=== PATIENT | male | born 1960 | race Caucasian/White ===

== ENCOUNTER 2018-10-13 07:38 | Inpatient (IN) | payer MEDICAID ==
[~2018-10-13] VITALS: Ht 177.8 cm; Wt 94.8 kg
[2018-10-13] MEDS ORDERED: ONDANSETRON 4 MG/2 ML VIAL ONE (07:58)
[2018-10-13] MEDS ORDERED: MORPHINE SULFATE 2 MG/1 ML DISP.SYRIN ONE (07:58)
[2018-10-13] MEDS ORDERED: MORPHINE SULFATE 2 MG/1 ML DISP.SYRIN IV ONE (08:00)
[2018-10-13] MEDS ORDERED: LOPERAMIDE HCL 2 MG CAPSULE PO ONE (08:00)
[2018-10-13] MEDS ORDERED: PANTOPRAZOLE SODIUM 40 MG VIAL IV ONE (08:00)
[2018-10-13] MEDS ORDERED: IV NORMAL SALINE 1000 ML BAG IV ONE (08:00)
[2018-10-13] MEDS ORDERED: ONDANSETRON 4 MG/2 ML VIAL IV ONE (08:00)
[2018-10-13] MEDS ORDERED: PANTOPRAZOLE SODIUM 40 MG VIAL ONE (08:25)
[2018-10-13] MEDS ORDERED: LOPERAMIDE HCL 2 MG CAPSULE ONE (08:26)
[2018-10-13 08:30] LABS: BASOPHILS % (AUTO) 0.4 % (0.0-2.0); EOSINOPHILS # (AUTO) 0.1 K/uL (0.0-0.7); EOSINOPHILS % (AUTO) 1.3 % (0.0-7.0); HEMATOCRIT 52.7 % (36.7-47.1); HEMOGLOBIN 17.5 g/dL (12.5-16.3); LYMPHOCYTES # (AUTO) 1.7 K/uL (20.0-40.0); LYMPHOCYTES % (AUTO) 29.8 % (20.5-51.5); MEAN CORPUSCULAR HEMOGLOBIN 31.5 uug (23.8-33.4); MEAN CORPUSCULAR HGB CONC 33 g/dL (32.5-36.3); MONOCYTES # (AUTO) 0.5 K/uL (2.0-10.0); MONOCYTES % (AUTO) 8.9 % (0.0-11.0); NEUTROPHILS # (AUTO) 3.4 K/uL (1.8-8.9); NEUTROPHILS % (AUTO) 59.6 % (38.5-71.5); PLATELET COUNT (AUTO) 178 K/uL (152-348); RED BLOOD CELL COUNT(AUTO) 5.55 MIL/uL (4.06-5.63); WHITE BLOOD COUNT (AUTO) 5.8 K/uL (3.6-10.2)
[2018-10-13 08:36] LABS: CREATININE 0.7 mg/dL (0.6-1.3); POTASSIUM 4.1 mmol/L (3.5-5.1)
[2018-10-13 08:53] LABS: BILIRUBIN,DIRECT 0.2 mg/dL (0.0-0.2); BILIRUBIN,TOTAL 0.5 mg/dL (0.1-1.0)
[2018-10-13 08:54] LABS: TOTAL PROTEIN, SERUM 7.2 g/dL (6.4-8.2)
[2018-10-13 09:56] LABS: *BILIRUBIN,URIN 1+ (NEGATIVE); *BLOOD, URINE NEGATIVE (NEGATIVE); *CLARITY,URINE CLEAR (CLEAR); *COLOR,URINE DARK YELLOW (YELLOW); *KETONES,URINE NEGATIVE (NEGATIVE); LEUKOCYTE ESTERASE ,URINE NEGATIVE (NEGATIVE); NITRITE, URINE NEGATIVE (NEGATIVE); PH,URINE 5.5 (5.0-8.0); UGLUCOSE NEGATIVE (NEGATIVE)
[2018-10-13 10:05] LABS: BACTERIA,URINE NONE SEEN /HPF (NONE SEEN); MUCUS,URINE FEW /LPF (0-FEW); RBC,URINE 0-3 /HPF (0-3); SQUAMOUS EPITHELIAL CELL,UR FEW /HPF (NONE SEEN); WBC,URINE 0-3 /HPF (0-3)
[2018-10-13 11:19] VITALS: BP 115/81
[2018-10-13] MEDS ORDERED: ONDANSETRON 4 MG/2 ML VIAL IV PRN (12:30)
[2018-10-13] MEDS ORDERED: ACETAMINOPHEN 325 MG TABLET PO PRN (12:30)
[2018-10-13] MEDS: MORPHINE SULFATE 2 MG/1 ML DISP.SYRIN IV PRN ×2 (14:15→14:47)
[2018-10-13] MEDS: IV NS 1000 ML 1,000 ML IV PRN (14:17)
[2018-10-13 15:01] VITALS: BP 120/78
[2018-10-13] MEDS: NICOTINE 21 MG/24HR PATCH TD SCH (17:32)
[2018-10-13 19:27] VITALS: BP 106/69
[2018-10-14] MEDS: IV NS 1000 ML 1,000 ML IV PRN (01:05)
[2018-10-14 03:25] VITALS: BP 126/67
[2018-10-14] MEDS: PANTOPRAZOLE SODIUM 40 MG TABLET.DR PO SCH (06:21)
[2018-10-14 06:32] LABS: EOSINOPHILS # (AUTO) 0.1 K/uL (0.0-0.7); LYMPHOCYTES # (AUTO) 1.2 K/uL (20.0-40.0); MEAN CORPUSCULAR HGB CONC 33 g/dL (32.5-36.3); MONOCYTES # (AUTO) 0.4 K/uL (2.0-10.0); NEUTROPHILS # (AUTO) 2.2 K/uL (1.8-8.9)
[2018-10-14 06:43] LABS: BASOPHILS % (AUTO) 0.8 % (0.0-2.0); EOSINOPHILS % (AUTO) 1.8 % (0.0-7.0); LYMPHOCYTES % (AUTO) 30.7 % (20.5-51.5); MEAN CORPUSCULAR HEMOGLOBIN 31.4 uug (23.8-33.4); MONOCYTES % (AUTO) 9.6 % (0.0-11.0); NEUTROPHILS % (AUTO) 57.1 % (38.5-71.5); PLATELET COUNT (AUTO) 138 K/uL (152-348)
[2018-10-14 06:44] LABS: BILIRUBIN,TOTAL 0.5 mg/dL (0.2-1.0); CREATININE 0.7 mg/dL (0.6-1.3); MAGNESIUM 2.1 mg/dL (1.8-2.4); PHOSPHOROUS 3.5 mg/dL (2.5-4.9); POTASSIUM 4.5 mmol/L (3.5-5.1)
[2018-10-14 06:45] LABS: HEMATOCRIT 45.1 % (36.7-47.1); WHITE BLOOD COUNT (AUTO) 3.9 K/uL (3.6-10.2)
[2018-10-14 06:51] LABS: THYROID STIMULATING HORMONE 1.46 mIU/mL (0.358-3.740)
[2018-10-14] MEDS: NICOTINE 21 MG/24HR PATCH TD SCH (09:11)
[2018-10-14 11:04] VITALS: BP 136/78
[2018-10-14] MEDS: CYANOCOBALAMIN 1000 MCG/ML VIAL IM SCH (11:44)
[2018-10-14] MEDS: MORPHINE SULFATE 2 MG/1 ML DISP.SYRIN IV PRN ×2 (12:06→20:47)
[2018-10-14 16:12] VITALS: BP 110/78
[2018-10-14 20:46] VITALS: BP 130/76
[2018-10-15] MEDS: IV NS 1000 ML 1,000 ML IV PRN ×2 (01:29→18:45)
[2018-10-15 05:51] VITALS: BP 130/88
[2018-10-15] MEDS: PANTOPRAZOLE SODIUM 40 MG TABLET.DR PO SCH (06:02)
[2018-10-15 06:57] LABS: BASOPHILS % (AUTO) 0.5 % (0.0-2.0); EOSINOPHILS # (AUTO) 0.1 K/uL (0.0-0.7); EOSINOPHILS % (AUTO) 1.3 % (0.0-7.0); HEMOGLOBIN 15.1 g/dL (12.5-16.3); LYMPHOCYTES # (AUTO) 1.1 K/uL (20.0-40.0); LYMPHOCYTES % (AUTO) 29.3 % (20.5-51.5); MEAN CORPUSCULAR HEMOGLOBIN 31.5 uug (23.8-33.4); MEAN CORPUSCULAR HGB CONC 34 g/dL (32.5-36.3); MEAN CORPUSCULAR VOLUME 93.7 fL (73.0-96.2); MONOCYTES # (AUTO) 0.5 K/uL (2.0-10.0); MONOCYTES % (AUTO) 13.7 % (0.0-11.0); NEUTROPHILS # (AUTO) 2.1 K/uL (1.8-8.9); NEUTROPHILS % (AUTO) 55.2 % (38.5-71.5); PLATELET COUNT (AUTO) 127 K/uL (152-348); WHITE BLOOD COUNT (AUTO) 3.8 K/uL (3.6-10.2)
[2018-10-15 07:13] LABS: CREATININE 0.8 mg/dL (0.6-1.3); MAGNESIUM 1.9 mg/dL (1.8-2.4); PHOSPHOROUS 3.3 mg/dL (2.5-4.9)
[2018-10-15] MEDS: CYANOCOBALAMIN 1000 MCG/ML VIAL IM SCH (09:05)
[2018-10-15] MEDS: NICOTINE 21 MG/24HR PATCH TD SCH (09:05)
[2018-10-15 09:10] VITALS: BP 124/80
[2018-10-15] MEDS: MORPHINE SULFATE 2 MG/1 ML DISP.SYRIN IV PRN (09:18)
[2018-10-15 11:23] VITALS: BP 112/79
[2018-10-15 15:45] VITALS: BP 136/83
[2018-10-15 20:07] VITALS: BP 130/72
[2018-10-16] MEDS: IV NS 1000 ML 1,000 ML IV PRN (06:30)
[2018-10-16 06:42] VITALS: BP 120/68
[2018-10-16] MEDS: PANTOPRAZOLE SODIUM 40 MG TABLET.DR PO SCH (07:09)
[2018-10-16] MEDS: NICOTINE 21 MG/24HR PATCH TD SCH (09:11)
[2018-10-16] MEDS: CYANOCOBALAMIN 1000 MCG/ML VIAL IM SCH (09:11)
[2018-10-16] MEDS: MORPHINE SULFATE 2 MG/1 ML DISP.SYRIN IV PRN (09:12)
[2018-10-16 11:36] VITALS: BP 122/52
== END 2018-10-16 12:40 | disposition home or self-care (01) | DRG 249 ==
LOC: ER 07:38 → MEDSURG3 10:52
PROVIDERS: ADMIT Internal Medicine; ATTEND Internal Medicine
DX: A08.4 Viral intestinal infection, unspecified (principal); E44.0 Moderate protein-calorie malnutrition; K83.8 Other specified diseases of biliary tract; K74.60 Unspecified cirrhosis of liver; K56.7 Ileus, unspecified; E11.9 Type 2 diabetes mellitus without complications; D75.89 Other specified diseases of blood and blood-forming organs; K74.69 Other cirrhosis of liver; B19.20 Unspecified viral hepatitis C without hepatic coma; Z59.0 Homelessness; E66.9 Obesity, unspecified; Z68.30 Body mass index [BMI] 30.0-30.9, adult; N20.0 Calculus of kidney; F17.210 Nicotine dependence, cigarettes, uncomplicated; J44.9 Chronic obstructive pulmonary disease, unspecified; Z91.81 History of falling; E53.8 Deficiency of other specified B group vitamins; M46.04 Spinal enthesopathy, thoracic region; F15.90 Other stimulant use, unspecified, uncomplicated; M19.90 Unspecified osteoarthritis, unspecified site
CPT/HCPCS: 36415; 70030-TC; 71045; 83550; 83690; 83735; 84100; 84443; 85025; 86625; 86803; 87040; 87046; 87177; 93005; A4663; C9113; G0378; J2270; J2405; J3420; J7030

== ENCOUNTER 2018-10-21 06:45 | Emergency (ER) | payer MEDICAID ==
[~2018-10-21] VITALS: Ht 172.7 cm; Wt 98.4 kg
--- NOTE | 2018-10-21 06:59 | NUR ---
Patient ambulated with stable gait. AAOX4. Speech is clear, speaks in complete sentences. No neuro deficits. Patient came for c/o chest pain x2 days, and stated that he is "cursed". Respiratory even and unlabored, no cough no sob. Pain 4/10, non-radiating. Patient uses meth, last use about a week ago per patient. Denies any n/v/d. Patient in bed at lowest position, sr up x2, call light within reach. Fall precautions implemented per protocol.
--- NOTE | 2018-10-21 07:05 | NUR ---
ERMD at bedside for MSE
--- NOTE | 2018-10-21 07:25 | NUR ---
1st contact with pt- He is GILBERT Muse, respiration:easy, dishiveled appearance, "...paranoid patient" per Dr Carranza. Patient moved to room 3 from room 1-A per MD's request. Addendum: 10/21/18 at 0734 by CSALE ...disheveled (not dishiveled)
--- NOTE | 2018-10-21 07:29 | NUR ---
Patient does not want to stay, MD notifed.
--- NOTE | 2018-10-21 07:31 | NUR ---
Patient eloped from facility. ER physician notified.
[2018-10-21 07:34] LABS: LYMPHOCYTES # (AUTO) 1.5 K/uL (20.0-40.0); MEAN CORPUSCULAR VOLUME 92.8 fL (73.0-96.2); MONOCYTES # (AUTO) 0.5 K/uL (2.0-10.0)
[2018-10-21 07:40] LABS: BASOPHILS % (AUTO) 0.5 % (0.0-2.0); EOSINOPHILS % (AUTO) 0.6 % (0.0-7.0); HEMATOCRIT 44.9 % (36.7-47.1); HEMOGLOBIN 15.1 g/dL (12.5-16.3); LYMPHOCYTES % (AUTO) 29.5 % (20.5-51.5); MEAN CORPUSCULAR HEMOGLOBIN 31.3 uug (23.8-33.4); MEAN CORPUSCULAR HGB CONC 34 g/dL (32.5-36.3); MONOCYTES % (AUTO) 10.7 % (0.0-11.0); NEUTROPHILS # (AUTO) 2.9 K/uL (1.8-8.9); NEUTROPHILS % (AUTO) 58.7 % (38.5-71.5); RED BLOOD CELL COUNT(AUTO) 4.84 MIL/uL (4.06-5.63)
[2018-10-21 07:45] LABS: PLATELET COUNT (AUTO) 162 K/uL (152-348)
[2018-10-21 07:48] LABS: ALANINE AMINOTRANSFERASE 70 U/L (16-63); ALKALINE PHOSPHATASE 87 U/L (50-136); ASPARTATE AMINOTRANSFERASE 44 U/L (15-37); BILIRUBIN,DIRECT 0.4 mg/dL (0.0-0.2); CARBON DIOXIDE 29 mmol/L (21-32); CHLORIDE 106 mmol/L (98-107); CREATININE 0.8 mg/dL (0.6-1.3); GLUCOSE 119 mg/dL (74-106); POTASSIUM 3.5 mmol/L (3.5-5.1); TOTAL PROTEIN, SERUM 6.9 g/dL (6.4-8.2); UREA NITROGEN, BLOOD 16 mg/dL (7-18)
[2018-10-21 07:56] LABS: ETHANOL < 3 MG/DL (0-0)
[2018-10-21 08:32] LABS: ACETAMINOPHEN < 2.0 ug/mL (10-30)
== END 2018-10-21 07:32 | disposition left against medical advice (07) ==
LOC: ER 06:45
DX: R07.9 Chest pain, unspecified (principal); E11.9 Type 2 diabetes mellitus without complications; F17.200 Nicotine dependence, unspecified, uncomplicated; Z59.0 Homelessness
CPT/HCPCS: 36415; 80048; 80076; 84484; 85025; 93005; 99284; G0480 ×2; G0481; 70030-TC; A4663